=== PATIENT | female | born 1985 | race Caucasian/White ===

== ENCOUNTER 2019-04-09 08:05 | Emergency (ER) | payer BC ==
[~2019-04-09] VITALS: Ht 160 cm; Wt 54.6 kg
[2019-04-09 09:27] LABS: BASOPHILS % 0.3 % (0.0-2.0); CHLORIDE 110 mEq/L (98-107); EOSINOPHILS % 0.4 % (0.0-5.0); HEMATOCRIT. 39.2 % (36.0-48.0); HEMOGLOBIN. 13.1 g/dL (12.0-16.0); LYMPHOCYTES % 15.3 % (20.0-50.0); MEAN CORPUSCULAR HEMOGLOBIN 29.4 pg (28.0-32.0); MEAN PLATELET VOLUME 10.2 fl (7.4-10.4); MONOCYTES % 4.6 % (2.0-8.0); NEUTROPHILS % 79.4 % (40.0-76.0); PLATELET 154 x1000/uL (130-400); RED BLOOD CELL COUNT 4.45 mill/uL (4.2-5.4); RED CELL DISTRIBUTION WIDTH 13.5 % (11.6-14.6)
[2019-04-09 09:37] LABS: B-HCG QUANTITATIVE 238 mIU/mL (<3)
[2019-04-09] MEDS ORDERED: ACETAMINOPHEN 325MG TABLET PO ONE (11:15)
[2019-04-09 12:00] VITALS: BP 116/75
== END 2019-04-09 12:14 | disposition home or self-care (01) ==
LOC: ER 08:05
DX: O20.0 Threatened abortion (principal); O34.80 Maternal care for other abnormalities of pelvic organs, unspecified trimester; N83.201 Unspecified ovarian cyst, right side; Z3A.00 Weeks of gestation of pregnancy not specified
CPT/HCPCS: 36415; 76801; 81025; 84702; 86850; 86900; 99284

== ENCOUNTER 2019-04-12 09:50 | Emergency (ER) | payer BC ==
[~2019-04-12] VITALS: Ht 160 cm; Wt 54.0 kg
[2019-04-12 11:57] LABS: HEMATOCRIT. 38.7 % (36.0-48.0); HEMOGLOBIN. 12.8 g/dL (12.0-16.0); MEAN CORPUSCULAR HEMOGLOBIN 29.2 pg (28.0-32.0); MEAN CORPUSCULAR VOLUME 88.2 fL (81.0-99.0); MEAN PLATELET VOLUME 10.4 fl (7.4-10.4); PLATELET 159 x1000/uL (130-400); RED BLOOD CELL COUNT 4.38 mill/uL (4.2-5.4); RED CELL DISTRIBUTION WIDTH 13.9 % (11.6-14.6)
[2019-04-12 12:40] LABS: PLATELET ESTIMATE NORMAL
[2019-04-12 13:59] VITALS: BP 109/43
== END 2019-04-12 14:00 | disposition home or self-care (01) ==
LOC: ER 09:50
DX: O26.891 Other specified pregnancy related conditions, first trimester (principal); R10.2 Pelvic and perineal pain; Z3A.00 Weeks of gestation of pregnancy not specified
CPT/HCPCS: 36415; 76801; 76817; 81025; 84702; 85025; 99284; Z7610